=== PATIENT | female | born 1975 | race Caucasian/White ===

== ENCOUNTER 2019-10-17 04:14 | Emergency (ER) | payer MEDICAID ==
--- NOTE | 2019-10-17 07:29 | RADIOLOGY REPORT (SQ) ---
Chest 2 view on 10/17/2019 at 7:20 AM CLINICAL INDICATION: Cough COMPARISON: None FINDINGS: The lungs are clear. Cardiac, hilar and mediastinal contours are within normal limits. Pulmonary vascularity is within normal limits. No bony abnormality is noted. IMPRESSION: No active disease.
--- NOTE | 2019-10-17 07:30 | ER Document Report ---
ED Respiratory Problem - General Chief Complaint: Cold Symptoms Stated Complaint: SICK/TROUBLE BREATHING Time Seen by Provider: 10/17/19 06:12 Primary Care Provider: MICK EDDY DO [Primary Care Provider] - Follow up as needed Mode of Arrival: Ambulatory Information source: Patient Notes: 43-year-old woman presents to the emergency department with a complaint of 1 week history of upper respiratory tract symptoms. She has been seen by her physician on 2 occasions. She began with a fever and upper respiratory symptoms with dry cough and not feeling well. She was told that likely a viral illness she began using Robitussin DM. After 2 days she returned stating that the symptoms were worse and she was feeling some short of breath with increasing cough and now productivity of a yellowish sputum. She was then given a inhaler and told to continue the cough medication. She presents to the emergency department because she is unable to rest and the cough is worsened she is also having soreness in her rib cage from coughing and shortness of breath with exertion. She has been healthy without any prior pulmonary or cardiovascular illness. - Related Data Allergies/Adverse Reactions: No Known Allergies Allergy (Unverified 10/17/19 04:29) Past Medical History - Social History Smoking Status: Never Smoker Chew tobacco use (# tins/day): No Frequency of alcohol use: Occasional Drug Abuse: None Family History: Reviewed & Not Pertinent Patient has suicidal ideation: No Patient has homicidal ideation: No Past Surgical History: Reports: Hx Cholecystectomy Review of Systems - Review of Systems Notes: Constitutional: Negative for fever. HENT: Negative for sore throat. Eyes: Negative for visual changes. Cardiovascular: Negative for chest pain. Respiratory: + Shortness of breath. + Chest wall pain with cough Gastrointestinal: Negative for abdominal pain, vomiting or diarrhea. Genitourinary: Negative for dysuria. Musculoskeletal: Negative for back pain. Skin: Negative for rash. Neurological: Negative for headaches, weakness or numbness. 10 point ROS negative except as marked above and in HPI. Physical Exam - Vital signs Vitals: Temp Pulse Resp BP Pulse Ox 98.3 F 72 22 H 116/65 100 10/17/19 04:19 10/17/19 04:19 10/17/19 04:19 10/17/19 04:10/17/19 04:19 - Notes Notes: PHYSICAL EXAMINATION: Physical Exam: General: Well-nourished well-developed in no acute distress HEENT: NC/AT, pupils equal round and reactive to light, MM moist,nares clear, oropharynx clear Neck: supple, no adenopathy, no masses. Lungs: clear, no wheezing, no rales no rhonchi CVS: Regular rate and rhythm no murmur gallop or rub Abdomen: Soft, active, nontender, no masses, no hepatosplenomegaly Ext: No edema, clubbing, or cyanosis. Neuro: Alert and responsive, moving all 4 extremities on command, cranial nerves intact. Skin: Intact no open lesions, no rash PSYCH: Normal mood, normal affect. Course - Re-evaluation Re-evalutation: 10/17/19 07:28 Patient notes that she is not getting any better and feels that she needs an antibiotic or something else to improve the course of things. We are obtaining a chest x-ray and we will treat her empirically with Zithromax and prednisone along with Tessalon Perle and suggest that she follow-up with her primary if needed. 10/17/19 07:30 Chest x-ray with some streaky bronchial markings, no infiltrate or effusion, will treat as a bronchitis. I have informed the patient of the treatment plan and she is in agreement. - Vital Signs Vital signs: Temp Pulse Resp BP Pulse Ox 98.1 F 79 18 109/62 100 10/17/19 07:40 10/17/19 07:40 10/17/19 07:40 10/17/19 07:40 10/17/19 07:40 - Diagnostic Test Radiology reviewed: Image reviewed - Chest x-ray, 2 view: No acute infiltrate, increased bronchial markings. Discharge - Discharge Clinical Impression: Cough Acute bronchitis Qualifiers: Bronchitis organism: unspecified organism Qualified Code(s): J20.9 - Acute bronchitis, unspecified Condition: Good Disposition: HOME, SELF-CARE Instructions: Bronchitis ([facility]) Additional Instructions: You were diagnosed with acute bronchitis in the emergency department today. Given the progressive course of your illness and a productive episodes, you were given an antibiotic Zithromax, prednisone a steroid to reduce the inflammation in your bronchial tubes, Tessalon Perle to help control the coughing episodes. If your symptoms are improving please complete the course of treatment, you may not see an immediate improvement but in the next 48 hours you should be some gradual improvement. If your symptoms are worsening or if there are other concerns please return to the emergency department for further evaluation and treatment. Prescriptions: Benzonatate [Tessalon Perles 100 mg Capsule] 2 mg PO Q8HP PRN #40 capsule PRN Reason: Prednisone [Deltasone 20 mg Tablet] 1 tab PO BID 5 Days #10 tablet Azithromycin [Zithromax 250 mg Tablet] 250 mg PO ASDIR PRN #6 tablet PRN Reason: Referrals: MICK EDDY, [Primary Care Provider] - Follow up as needed
[2019-10-17 07:43] VITALS: BP 109/62
== END 2019-10-17 07:42 | disposition home or self-care (01) ==
LOC: ER 04:14
DX: J20.9 Acute bronchitis, unspecified (principal); R05 Cough; R50.9 Fever, unspecified; R07.81 Pleurodynia; R06.02 Shortness of breath; R07.89 Other chest pain
CPT/HCPCS: 71046; 99283